=== PATIENT | female | born 1965 | race Caucasian/White ===

== ENCOUNTER 2017-05-17 12:27 | Emergency (ER) | payer MEDICAID ==
[~2017-05-17] VITALS: Ht 152.4 cm; Wt 60.0 kg
[2017-05-17] MEDS ORDERED: METHYLPREDNISOLONE SOD SUCC 125 MG/2 ML VIAL IV STA (13:01)
[2017-05-17] MEDS ORDERED: LEVOFLOXACIN 750MG PREMIX 150 ML IV ONE (13:15)
[2017-05-17] MEDS ORDERED: IPRATROPIUM/ALBUTEROL 0.5-3(2.5)MG/3ML NEB HHN ONE (13:15)
[2017-05-17 13:31] LABS: BG BASE EXCESS 0.8 mmol/L (-2.0-2.0); BG CARBOXYHEMOGLOBIN 0.4 % (0.5-1.5); BG DEOXYHEMOGLOBIN 4.8 % (0.0-5.0); BG FRACTION INSPIRED OXYGEN 21; BG HCO3 ACT 26.2 mmol/L (22.0-26.0); BG METHEMOGLOBIN 0.1 % (0.0-1.5); BG OXYGEN SATURATION 95.2 % (92.0-98.5); BG OXYHEMOGLOBIN 94.7 % (94.0-97.0); BG PCO2 44.9 mmHg (35.0-45.0); BG PH 7.384 (7.350-7.450); BG PO2 81.8 mmHg (75.0-100.0); BG SAMPLE SITE LEFT BRACHIAL; BG VENT MODE ROOM AIR
[2017-05-17 14:13] LABS: BASOPHILS % 0.7 % (0.0-2.0); EOSINOPHILS % 11.3 % (0.0-5.0); HEMATOCRIT. 39.6 % (36.0-48.0); HEMOGLOBIN. 13.4 g/dL (12.0-16.0); LYMPHOCYTES % 39.7 % (20.0-50.0); MEAN CORPUSCULAR VOLUME 86.1 fL (81.0-99.0); MEAN PLATELET VOLUME 9.2 fl (7.4-10.4); NEUTROPHILS % 41.3 % (40.0-76.0); PLATELET 303 x1000/uL (130-400); RED CELL DISTRIBUTION WIDTH 13.8 % (11.6-14.6)
[2017-05-17 14:21] LABS: PARTIAL THROMBOPLASTIN TIME 27.5 sec (24.0-34.0); PROTHROMBIN TIME 10.6 sec
[2017-05-17 14:30] LABS: CARBON DIOXIDE 29 mEq/L (21-32); CHLORIDE 105 mEq/L (98-107); CREATINE KINASE 81 IU/L (26-192); TROPONIN I < 0.02 ng/mL (0.00-0.04)
[2017-05-17 17:45] VITALS: BP 119/68
== END 2017-05-17 17:49 | disposition home or self-care (01) ==
LOC: ER 14:55
DX: J45.901 Unspecified asthma with (acute) exacerbation (principal); E78.00 Pure hypercholesterolemia, unspecified
CPT/HCPCS: 36415; 36600; 71010; 80053; 82375; 82550; 82805; 83605; 83690; 83880; 84443; 84484; 85025; 85610; 85730; 87040; 93005; 94640; 96365; 96366; 96375; 99285; J1956; J2930; Z7610; J7620

== ENCOUNTER 2017-08-13 20:48 | Emergency (ER) | payer MEDICAID ==
[~2017-08-13] VITALS: Ht 152.4 cm; Wt 59.0 kg
[2017-08-13] MEDS ORDERED: PREDNISONE 20MG TABLET PO ONE (22:00)
[2017-08-13] MEDS ORDERED: IPRATROPIUM/ALBUTEROL 0.5-3(2.5)MG/3ML NEB HHN ONE ×2 (22:00→22:30)
[2017-08-14 00:45] VITALS: BP 147/64
== END 2017-08-14 01:20 | disposition home or self-care (01) ==
LOC: ER 22:17
DX: J45.901 Unspecified asthma with (acute) exacerbation (principal)
CPT/HCPCS: 94640; 99291; J7512; Z7610; J7620

== ENCOUNTER 2017-08-26 20:34 | Emergency (ER) | payer MEDICAID ==
[~2017-08-26] VITALS: Ht 165.1 cm; Wt 59.0 kg
[2017-08-26] MEDS ORDERED: METHYLPREDNISOLONE SOD SUCC 125 MG/2 ML VIAL IV STA (22:21)
[2017-08-26] MEDS ORDERED: IPRATROPIUM BROMIDE (0.02%) 0.5MG/2.5ML NEB HHN STA (22:21)
[2017-08-26] MEDS ORDERED: ALBUTEROL (0.083%) 2.5MG/3ML NEB HHN STA (22:21)
[2017-08-26] MEDS ORDERED: MAGNESIUM 2 G PREMIX 50 ML IV ONE (22:30)
[2017-08-26] MEDS ORDERED: IPRATROPIUM/ALBUTEROL 0.5-3(2.5)MG/3ML NEB ONE (22:40)
[2017-08-26] MEDS ORDERED: ALBUTEROL (0.5%) 2.5MG/0.5ML NEB HHN ONE (22:40)
[2017-08-26 22:45] LABS: BASOPHILS % 0.7 % (0.0-2.0); EOSINOPHILS % 7.8 % (0.0-5.0); HEMATOCRIT. 40.5 % (36.0-48.0); HEMOGLOBIN. 13.6 g/dL (12.0-16.0); LYMPHOCYTES % 24.7 % (20.0-50.0); MEAN CORPUSCULAR HEMOGLOBIN 28.8 pg (28.0-32.0); MEAN CORPUSCULAR VOLUME 86.1 fL (81.0-99.0); MEAN PLATELET VOLUME 9.1 fl (7.4-10.4); MONOCYTES % 6.3 % (2.0-8.0); NEUTROPHILS % 60.5 % (40.0-76.0); PLATELET 323 x1000/uL (130-400); RED CELL DISTRIBUTION WIDTH 13.4 % (11.6-14.6)
[2017-08-26 22:55] LABS: D-DIMER 0.2 mg/L FEU (<0.50); PROTHROMBIN TIME 10.2 sec (9.4-11.6)
[2017-08-26 23:02] LABS: CARBON DIOXIDE 26 mEq/L (21-32); CHLORIDE 104 mEq/L (98-107)
[2017-08-26 23:03] LABS: TROPONIN I < 0.02 ng/mL (0.00-0.04)
[2017-08-27 01:32] VITALS: BP 135/60
== END 2017-08-27 01:46 | disposition home or self-care (01) ==
LOC: ER 21:30 → CANBEDREQ 08-27 06:39
DX: J45.901 Unspecified asthma with (acute) exacerbation (principal)
CPT/HCPCS: 36415; 71010; 80053; 83605; 83690; 83880; 84484; 85025; 85379; 85610; 87040; 87804; 93005; 93970; 94644; 96365; 96375; 99285; J2930; J3475; J7611; Z7610; J7620

== ENCOUNTER 2017-12-02 19:45 | Emergency (ER) | payer MEDICAID ==
[~2017-12-02] VITALS: Ht 152.4 cm; Wt 57.0 kg
[~2017-12-02 19:45] MED LIST: ALBU18HF2 IH; CETI-101 PO; FLUT1DIS3 IH; P50 PO
[2017-12-02 21:21] VITALS: BP 148/79
[2017-12-02] MEDS ORDERED: METHYLPREDNISOLONE SOD SUCC 125 MG/2 ML VIAL IV STA (22:00)
[2017-12-02] MEDS ORDERED: IPRATROPIUM BROMIDE (0.02%) 0.5MG/2.5ML NEB HHN STA (22:00)
[2017-12-02] MEDS ORDERED: ALBUTEROL (0.083%) 2.5MG/3ML NEB HHN STA (22:00)
[2017-12-03] MEDS ORDERED: ALBUTEROL (0.5%) 2.5MG/0.5ML NEB HHN ONE
[2017-12-03] MEDS ORDERED: ALBUTEROL (0.083%) 2.5MG/3ML NEB HHN ONE (00:15)
[2017-12-03] MEDS ORDERED: ALBUTEROL (0.083%) 2.5MG/3ML NEB ONE (00:23)
== END 2017-12-03 02:17 | disposition left against medical advice (07) ==
LOC: ER 21:41
DX: J45.901 Unspecified asthma with (acute) exacerbation (principal); J06.9 Acute upper respiratory infection, unspecified
CPT/HCPCS: 71045; 87804; 94640; 96374; 99285; J2930; J7611; Z7610

== ENCOUNTER 2018-10-21 15:08 | Inpatient (IN) | payer MEDICAID ==
[~2018-10-21] VITALS: Ht 157.5 cm; Wt 59.9 kg
[2018-10-21] MEDS ORDERED: ALBUTEROL (0.083%) 2.5MG/3ML NEB INH ONE (15:15)
[2018-10-21] MEDS ORDERED: IPRATROPIUM BROMIDE (0.02%) 0.5MG/2.5ML NEB HHN ONE (15:15)
[2018-10-21 16:16] LABS: BASOPHILS % 0.3 % (0.0-2.0); EOSINOPHILS % 0.5 % (0.0-5.0); HEMATOCRIT. 36.9 % (36.0-48.0); HEMOGLOBIN. 12.1 g/dL (12.0-16.0); MEAN CORPUSCULAR HEMOGLOBIN 27.6 pg (28.0-32.0); MEAN CORPUSCULAR VOLUME 84.2 fL (81.0-99.0); MEAN PLATELET VOLUME 8.9 fl (7.4-10.4); MONOCYTES % 8.9 % (2.0-8.0); NEUTROPHILS % 75.3 % (40.0-76.0); PLATELET 289 x1000/uL (130-400); RED BLOOD CELL COUNT 4.38 mill/uL (4.2-5.4); RED CELL DISTRIBUTION WIDTH 14.1 % (11.6-14.6)
[2018-10-21 16:22] LABS: CHLORIDE 101 mEq/L (98-107)
[2018-10-21 16:23] LABS: INR 1.1; PROTHROMBIN TIME 10.7 sec (9.1-11.1)
[2018-10-21] MEDS ORDERED: METHYLPREDNISOLONE SOD SUCC 125 MG/2 ML VIAL IV ONE (17:00)
[2018-10-21] MEDS ORDERED: SODIUM CHLORIDE 0.9% 1000ML BAG (SEPSIS BOLUS) IV ONE (17:00)
[2018-10-21] MEDS ORDERED: LEVOFLOXACIN 500MG PREMIX 100 ML IV ONE (17:00)
[2018-10-21 17:36] LABS: CLARITY URINE CLEAR (CLEAR); COLOR URINE YELLOW (YELLOW); KETONES URINE NEGATIVE (NEGATIVE); LEUKOCYTE ESTERASE URINE NEGATIVE (NEGATIVE); NITRITE URINE NEGATIVE (NEGATIVE); OCCULT BLOOD URINE NEGATIVE (NEGATIVE); PH URINE 5.5 (4.5-8.0); PROTEIN URINE NEGATIVE (NEGATIVE); SPECIFIC GRAVITY URINE 1.013 (1.005-1.030); UROBILINOGEN URINE 0.2 E.U./dL (0.2-1.0)
[2018-10-21 18:02] LABS: BG BASE EXCESS 1.7 mmol/L (-2.0-2.0); BG DEOXYHEMOGLOBIN 4.2 % (0.0-5.0); BG FRACTION INSPIRED OXYGEN 30; BG METHEMOGLOBIN 0.3 % (0.0-1.5); BG OXYGEN SATURATION 95.7 % (92.0-98.5); BG OXYHEMOGLOBIN 94.5 % (94.0-97.0); BG PCO2 39.8 mmHg (35.0-45.0); BG PH 7.433 (7.350-7.450); BG SAMPLE SITE RIGHT RADIAL; BG TOTAL HEMOGLOBIN 11.4 g/dL (12.0-18.0); BG VENT MODE NASAL CANNULA
[2018-10-21] MEDS ORDERED: ALBUTEROL (0.083%) 2.5MG/3ML NEB HHN ONE (18:30)
[2018-10-21] MEDS ORDERED: ALBUTEROL (0.083%) 2.5MG/3ML NEB HHN NR (19:00)
[2018-10-21] MEDS ORDERED: DOCUSATE SODIUM 100MG CAPSULE PO PRN (19:15)
[2018-10-21] MEDS ORDERED: NA PHOS,M-B/NA PHOS,DI-BA ENEMA 118ML PR PRN (19:15)
[2018-10-21] MEDS ORDERED: CLONIDINE 0.1MG TABLET PO PRN (19:15)
[2018-10-21] MEDS ORDERED: LORAZEPAM 2MG/ML CPJ IV PRN (19:15)
[2018-10-21] MEDS ORDERED: ONDANSETRON HCL 4MG/2ML INJ IV PRN (19:15)
[2018-10-21] MEDS ORDERED: MAGNESIUM/ALUMINUM HYDROXIDE/SIMETHICONE 30ML UDC PO PRN (19:15)
[2018-10-21] MEDS ORDERED: DIPHENHYDRAMINE 50MG/ML VIAL IV PRN (19:15)
[2018-10-21 23:04] LABS: CHLORIDE 105 mEq/L (98-107)
[2018-10-22] VITALS (7 sets, daily range): BP systolic 102–127; BP diastolic 62–76
[2018-10-22] MEDS ORDERED: MORPHINE SULFATE 10 MG/ML CPJ IV PRN (02:01)
[2018-10-22] MEDS: METHYLPREDNISOLONE SOD SUCC 125 MG/2 ML VIAL IV SCH ×4 (05:54→23:36)
[2018-10-22 07:19] LABS: HEMATOCRIT. 33.8 % (36.0-48.0); MEAN CORPUSCULAR HEMOGLOBIN 27.7 pg (28.0-32.0); MEAN CORPUSCULAR VOLUME 84.9 fL (81.0-99.0); MEAN PLATELET VOLUME 9.6 fl (7.4-10.4); PLATELET 283 x1000/uL (130-400); RED BLOOD CELL COUNT 3.98 mill/uL (4.2-5.4)
[2018-10-22 07:41] LABS: CHLORIDE 106 mEq/L (98-107)
[2018-10-22 07:53] LABS: LDL CHOLESTEROL 109 mg/dL (5-100)
[2018-10-22 07:55] LABS: HDL CHOLESTEROL 50 mg/dL (40-59); T4 FREE 1.41 ng/dL (0.76-1.46)
[2018-10-22] MEDS: ENOXAPARIN 40MG/0.4ML SYR SUBCUT SCH (09:00)
[2018-10-22] MEDS: IPRATROPIUM/ALBUTEROL 0.5-3(2.5)MG/3ML NEB INH PRN ×3 (09:11→16:19)
[2018-10-22 13:06] LABS: PLATELET ESTIMATE NORMAL
[2018-10-22] MEDS: ACETAMINOPHEN 325MG TABLET PO PRN (14:28)
[2018-10-22] MEDS: ASPIRIN 81MG EC TABLET PO SCH (14:35)
[2018-10-22] MEDS: GUAIFENESIN 200MG/10ML SUGAR FREE UDC PO PRN ×2 (14:44→23:37)
[2018-10-22] MEDS ORDERED: LEVOFLOXACIN 500MG PREMIX 100 ML IV SCH (17:00)
[2018-10-23] VITALS: BP 129/78
[2018-10-23] MEDS: IPRATROPIUM/ALBUTEROL 0.5-3(2.5)MG/3ML NEB INH PRN ×2 (00:05→07:57)
[2018-10-23] MEDS: HYDROCODONE/ACETAMINOPHEN 5/325MG TABLET PO PRN (02:24)
[2018-10-23 04:00] VITALS: BP 128/77
[2018-10-23] MEDS: METHYLPREDNISOLONE SOD SUCC 125 MG/2 ML VIAL IV SCH (05:29)
[2018-10-23 06:47] LABS: HEMATOCRIT. 33.3 % (36.0-48.0); MEAN CORPUSCULAR HEMOGLOBIN 27.9 pg (28.0-32.0); MEAN CORPUSCULAR VOLUME 84.8 fL (81.0-99.0); MEAN PLATELET VOLUME 9.3 fl (7.4-10.4); PLATELET 258 x1000/uL (130-400); RED BLOOD CELL COUNT 3.93 mill/uL (4.2-5.4)
[2018-10-23 08:00] VITALS: BP 136/74
[2018-10-23 08:13] LABS: CHLORIDE 103 mEq/L (98-107)
[2018-10-23] MEDS: ASPIRIN 81MG EC TABLET PO SCH (08:41)
[2018-10-23] MEDS: ACETAMINOPHEN 325MG TABLET PO PRN ×2 (08:41→16:44)
[2018-10-23] MEDS: ENOXAPARIN 40MG/0.4ML SYR SUBCUT SCH (08:41)
[2018-10-23] MEDS ORDERED: DEXTROSE 50% WATER 50ML SYRINGE IV PRN (10:00)
[2018-10-23] MEDS ORDERED: AZITHROMYCIN 500 MG TABLET PO NR (10:00)
[2018-10-23] MEDS: METHYLPREDNISOLONE SOD SUCC 40 MG/ML VIAL IV SCH ×2 (10:38→18:25)
[2018-10-23] MEDS: LORATADINE 10MG TABLET PO SCH (10:38)
[2018-10-23 10:51] LABS: PLATELET ESTIMATE NORMAL
[2018-10-23] MEDS: IPRATROPIUM/ALBUTEROL 0.5-3(2.5)MG/3ML NEB HHN SCH ×3 (11:32→21:05)
[2018-10-23 12:00] VITALS: BP 121/69
[2018-10-23] MEDS: LEVOFLOXACIN 500MG PREMIX 100 ML IV SCH (13:25)
[2018-10-23] MEDS: BLOOD SUGAR DIAGNOSTIC STRIP TEST SCH ×3 (13:33→20:57)
[2018-10-23] MEDS ORDERED: LEVOFLOXACIN 500MG PREMIX 100 ML IV SCH ×2 (14:00)
[2018-10-23 16:00] VITALS: BP 127/71
[2018-10-23] MEDS: GUAIFENESIN 200MG/10ML SUGAR FREE UDC PO PRN (16:43)
[2018-10-23] MEDS: MONTELUKAST SODIUM 10MG TABLET PO SCH (16:44)
[2018-10-23] MEDS: INSULIN LISPRO 100 UNITS/ML SUBCUT SCH ×2 (18:26→20:56)
[2018-10-23 20:00] VITALS: BP 132/72
[2018-10-23] MEDS: GUAIFENESIN 600MG ER TABLET PO SCH (20:56)
[2018-10-23] MEDS: FAMOTIDINE 20MG/2ML VIAL IV SCH (20:56)
[2018-10-24] VITALS: BP 144/81
[2018-10-24] MEDS: IPRATROPIUM/ALBUTEROL 0.5-3(2.5)MG/3ML NEB HHN SCH ×6 (00:29→21:34)
[2018-10-24] MEDS: METHYLPREDNISOLONE SOD SUCC 40 MG/ML VIAL IV SCH ×2 (01:11→09:28)
[2018-10-24] MEDS: HYDROCODONE/ACETAMINOPHEN 5/325MG TABLET PO PRN ×2 (01:11→09:28)
[2018-10-24 04:00] VITALS: BP 135/74
[2018-10-24] MEDS: BLOOD SUGAR DIAGNOSTIC STRIP TEST SCH ×4 (05:38→21:57)
[2018-10-24] MEDS: INSULIN LISPRO 100 UNITS/ML SUBCUT SCH ×4 (05:46→21:56)
[2018-10-24 06:21] LABS: HEMATOCRIT. 33.7 % (36.0-48.0); MEAN CORPUSCULAR HEMOGLOBIN 27.7 pg (28.0-32.0); MEAN CORPUSCULAR VOLUME 84.8 fL (81.0-99.0); PLATELET 217 x1000/uL (130-400); RED BLOOD CELL COUNT 3.97 mill/uL (4.2-5.4)
[2018-10-24 06:35] LABS: CHLORIDE 96 mEq/L (98-107)
[2018-10-24 08:00] VITALS: BP 159/83
[2018-10-24] MEDS: LORATADINE 10MG TABLET PO SCH (09:27)
[2018-10-24] MEDS: GUAIFENESIN 600MG ER TABLET PO SCH ×2 (09:27→21:56)
[2018-10-24] MEDS: AZITHROMYCIN 250 MG TABLET PO SCH (09:27)
[2018-10-24] MEDS: ACETAMINOPHEN 325MG TABLET PO PRN ×2 (09:27→23:39)
[2018-10-24] MEDS: FAMOTIDINE 20MG/2ML VIAL IV SCH ×2 (09:28→21:57)
[2018-10-24] MEDS: ASPIRIN 81MG EC TABLET PO SCH (09:28)
[2018-10-24] MEDS: ENOXAPARIN 40MG/0.4ML SYR SUBCUT SCH (09:29)
[2018-10-24 12:00] VITALS: BP 130/72
[2018-10-24] MEDS: LEVOFLOXACIN 500MG PREMIX 100 ML IV SCH (13:28)
[2018-10-24 14:07] LABS: PLATELET ESTIMATE NORMAL
[2018-10-24 16:00] VITALS: BP 118/63
[2018-10-24] MEDS ORDERED: AMIKACIN SULFATE 450 MG in SODIUM CHLORIDE 0.9% 100 ML IV NR (16:00)
[2018-10-24] MEDS: MONTELUKAST SODIUM 10MG TABLET PO SCH (16:50)
[2018-10-24] MEDS: PREDNISONE 20MG TABLET PO SCH (16:50)
[2018-10-24 20:00] VITALS: BP 122/64
[2018-10-25] VITALS: BP 143/75
[2018-10-25] MEDS: IPRATROPIUM/ALBUTEROL 0.5-3(2.5)MG/3ML NEB HHN SCH ×5 (01:21→16:00)
[2018-10-25 04:00] VITALS: BP 132/84
[2018-10-25] MEDS: BLOOD SUGAR DIAGNOSTIC STRIP TEST SCH ×3 (06:50→17:00)
[2018-10-25 07:52] LABS: HEMATOCRIT. 38.5 % (36.0-48.0); HEMOGLOBIN. 12.8 g/dL (12.0-16.0); MEAN CORPUSCULAR HEMOGLOBIN 28.1 pg (28.0-32.0); MEAN CORPUSCULAR VOLUME 84.7 fL (81.0-99.0); MEAN PLATELET VOLUME 8.9 fl (7.4-10.4); PLATELET 213 x1000/uL (130-400); RED BLOOD CELL COUNT 4.54 mill/uL (4.2-5.4); RED CELL DISTRIBUTION WIDTH 13.6 % (11.6-14.6)
[2018-10-25 08:00] VITALS: BP 138/76
[2018-10-25] MEDS: INSULIN LISPRO 100 UNITS/ML SUBCUT SCH ×3 (08:10→17:13)
[2018-10-25] MEDS: PREDNISONE 20MG TABLET PO SCH ×2 (09:03→17:00)
[2018-10-25] MEDS: FAMOTIDINE 20MG/2ML VIAL IV SCH (09:03)
[2018-10-25] MEDS: GUAIFENESIN 600MG ER TABLET PO SCH (09:04)
[2018-10-25] MEDS: LORATADINE 10MG TABLET PO SCH (09:04)
[2018-10-25] MEDS: AZITHROMYCIN 250 MG TABLET PO SCH (09:04)
[2018-10-25] MEDS: ASPIRIN 81MG EC TABLET PO SCH (09:04)
[2018-10-25] MEDS: ENOXAPARIN 40MG/0.4ML SYR SUBCUT SCH (09:05)
[2018-10-25 09:57] LABS: CHLORIDE 94 mEq/L (98-107)
[2018-10-25] MEDS ORDERED: AMIKACIN SULFATE 400 MG in SODIUM CHLORIDE 0.9% 100 ML IV SCH ×2 (10:00→16:00)
[2018-10-25] MEDS: HYDROCODONE/ACETAMINOPHEN 5/325MG TABLET PO PRN (11:27)
[2018-10-25 16:00] VITALS: BP 95/56
[2018-10-25 16:12] LABS: PLATELET ESTIMATE NORMAL
[2018-10-25] MEDS: MONTELUKAST SODIUM 10MG TABLET PO SCH (17:00)
[2018-10-25 19:49] VITALS: BP 127/76
[2018-10-25 20:00] VITALS: BP 127/76
== END 2018-10-25 20:32 | disposition home or self-care (01) | DRG 720 ==
LOC: ER 15:23 → EDBEDREQTM 17:02 → EDBEDREQ 23:32 → EDBEDREQSVC 23:32 → 7WST 23:32 → EDBEDREQTM 23:32 → ENRESERV 10-22 00:51
PROVIDERS: ADMIT Internal Medicine; ATTEND Internal Medicine
DX: A41.50 Gram-negative sepsis, unspecified (principal); J96.00 Acute respiratory failure, unspecified whether with hypoxia or hypercapnia; E11.65 Type 2 diabetes mellitus with hyperglycemia; J45.901 Unspecified asthma with (acute) exacerbation; K21.9 Gastro-esophageal reflux disease without esophagitis; N39.0 Urinary tract infection, site not specified; B96.20 Unspecified Escherichia coli [E. coli] as the cause of diseases classified elsewhere; T38.0X5A Adverse effect of glucocorticoids and synthetic analogues, initial encounter; E86.0 Dehydration; J20.9 Acute bronchitis, unspecified; E78.5 Hyperlipidemia, unspecified; Z82.49 Family history of ischemic heart disease and other diseases of the circulatory system; Z83.3 Family history of diabetes mellitus; Y92.89 Other specified places as the place of occurrence of the external cause
CPT/HCPCS: 36415; 36600; 71045; 80048; 80061; 82375; 82805; 82962; 83605; 84145; 84439; 84443; 84484; 87077; 87186; 87804; 93005; 94640; 94644; 96365; 96375; 99285; C1893; J0278; J1650; J1815; J1956; J2920; J2930; J3490; J7050; J7512; J7611; J7620

== ENCOUNTER 2018-10-26 15:06 | Inpatient (IN) | payer MEDICAID ==
[~2018-10-26] VITALS: Ht 152.4 cm; Wt 60.3 kg
[2018-10-26] MEDS ORDERED: SODIUM CHLORIDE 0.9% 1,000 ML IV ONE (15:55)
[2018-10-26] MEDS ORDERED: IPRATROPIUM BROMIDE (0.02%) 0.5MG/2.5ML NEB HHN STA (15:55)
[2018-10-26] MEDS ORDERED: METHYLPREDNISOLONE SOD SUCC 125 MG/2 ML VIAL IV STA (15:55)
[2018-10-26] MEDS ORDERED: MAGNESIUM 2 G PREMIX 50 ML IV ONE (16:00)
[2018-10-26] MEDS: ALBUTEROL (0.083%) 2.5MG/3ML NEB HHN SCH (16:35)
[2018-10-26 16:50] LABS: CHLORIDE 89 mEq/L (98-107)
[2018-10-26] MEDS ORDERED: POTASSIUM CHLORIDE 20MEQ TABLET SR PO ONE (17:45)
[2018-10-26 17:58] LABS: MEAN CORPUSCULAR VOLUME 84.4 fL (81.0-99.0); RED BLOOD CELL COUNT 5.49 mill/uL (4.2-5.4)
[2018-10-26 18:02] LABS: MEAN CORPUSCULAR HEMOGLOBIN 27.7 pg (28.0-32.0); MEAN PLATELET VOLUME 8.7 fl (7.4-10.4); RED CELL DISTRIBUTION WIDTH 13.8 % (11.6-14.6)
[2018-10-26 18:04] LABS: PLATELET 48 x1000/uL (130-400)
[2018-10-26 18:05] LABS: HEMOGLOBIN. 15.2 g/dL (12.0-16.0)
[2018-10-26 18:06] LABS: HEMATOCRIT. 46.3 % (36.0-48.0)
[2018-10-26] MEDS ORDERED: ALBUTEROL (0.083%) 2.5MG/3ML NEB HHN STA (18:14)
[2018-10-26] MEDS ORDERED: VANCOMYCIN 1 G PREMIX 200 ML IV ONE (18:15)
[2018-10-26] MEDS ORDERED: PIPERACILLIN/TAZ 3.375G PREMIX 50 ML IV ONE (18:15)
[2018-10-26] MEDS ORDERED: SODIUM CHLORIDE 0.9% 1000ML BAG (SEPSIS BOLUS) IV ONE (18:15)
[2018-10-26] MEDS ORDERED: MAGNESIUM/ALUMINUM HYDROXIDE/SIMETHICONE 30ML UDC PO PRN (20:30)
[2018-10-26] MEDS ORDERED: DIPHENHYDRAMINE 50MG/ML VIAL IV PRN (20:30)
[2018-10-26] MEDS ORDERED: CLONIDINE 0.1MG TABLET PO PRN (20:30)
[2018-10-26] MEDS ORDERED: PIPERACILLIN/TAZ 3.375G PREMIX 50 ML IV SCH (20:30)
[2018-10-26] MEDS ORDERED: ENOXAPARIN 40MG/0.4ML SYR SUBCUT SCH (20:30)
[2018-10-26] MEDS ORDERED: HYDROMORPHONE HCL/PF 2MG/ML CPJ IV PRN (20:30)
[2018-10-26] MEDS ORDERED: HYDROCODONE/ACETAMINOPHEN 5/325MG TABLET PO PRN (20:30)
[2018-10-26] MEDS ORDERED: DOCUSATE SODIUM 100MG CAPSULE PO PRN (20:30)
[2018-10-26] MEDS ORDERED: ACETAMINOPHEN 325MG TABLET PO PRN (20:30)
[2018-10-26] MEDS ORDERED: ONDANSETRON HCL 4MG/2ML INJ IV PRN (20:30)
[2018-10-26] MEDS ORDERED: NA PHOS,M-B/NA PHOS,DI-BA ENEMA 118ML PR PRN (21:00)
[2018-10-26 21:13] VITALS: BP 111/70
[2018-10-26 21:59] LABS: NUCLEATED RED BLOOD CELLS 1 /100 WBC
[2018-10-26 22:00] VITALS: BP 111/70
[2018-10-26 22:04] LABS: PLATELET ESTIMATE MARKEDLY DECREASED
[2018-10-26] MEDS: IPRATROPIUM/ALBUTEROL 0.5-3(2.5)MG/3ML NEB INH PRN (22:35)
[2018-10-26] MEDS: METHYLPREDNISOLONE SOD SUCC 125 MG/2 ML VIAL IV SCH (23:53)
[2018-10-27] VITALS (8 sets, daily range): BP systolic 112–129; BP diastolic 65–84
[2018-10-27 00:24] LABS: INR 1.1; PROTHROMBIN TIME 10.8 sec (9.1-11.1)
[2018-10-27] MEDS: IPRATROPIUM/ALBUTEROL 0.5-3(2.5)MG/3ML NEB INH PRN ×6 (00:46→21:00)
[2018-10-27] MEDS: PIPERACILLIN/TAZ 3.375G PREMIX 50 ML IV SCH ×3 (04:08→22:12)
[2018-10-27] MEDS: METHYLPREDNISOLONE SOD SUCC 125 MG/2 ML VIAL IV SCH ×4 (05:52→23:11)
[2018-10-27] MEDS: VANCOMYCIN 750 MG PREMIX 150 ML IV SCH ×2 (05:52→18:58)
[2018-10-27 07:17] LABS: HEMATOCRIT. 40.1 % (36.0-48.0); HEMOGLOBIN. 13.3 g/dL (12.0-16.0); MEAN CORPUSCULAR HEMOGLOBIN 28.2 pg (28.0-32.0); MEAN CORPUSCULAR VOLUME 85.3 fL (81.0-99.0); MEAN PLATELET VOLUME 8.8 fl (7.4-10.4); RED CELL DISTRIBUTION WIDTH 14.1 % (11.6-14.6)
[2018-10-27 07:37] LABS: CHLORIDE 96 mEq/L (98-107)
[2018-10-27 07:50] LABS: LDL CHOLESTEROL 95 mg/dL (5-100)
[2018-10-27 07:51] LABS: HDL CHOLESTEROL 16 mg/dL (40-59)
[2018-10-27] MEDS: ASPIRIN 81MG EC TABLET PO SCH (10:00)
[2018-10-27 11:20] LABS: ATYPICAL LYMPHOCYTES 0
[2018-10-27 21:35] LABS: HEMATOCRIT. 39.3 % (36.0-48.0); HEMOGLOBIN. 12.7 g/dL (12.0-16.0); MEAN CORPUSCULAR HEMOGLOBIN 27.3 pg (28.0-32.0); MEAN CORPUSCULAR VOLUME 84.4 fL (81.0-99.0); RED BLOOD CELL COUNT 4.66 mill/uL (4.2-5.4); RED CELL DISTRIBUTION WIDTH 13.9 % (11.6-14.6)
[2018-10-27 21:44] LABS: PLATELET 24 x1000/uL (130-400)
[2018-10-27 23:00] LABS: ATYPICAL LYMPHOCYTES 6; PLATELET ESTIMATE DECREASED
[2018-10-28] VITALS (11 sets, daily range): BP systolic 115–161; BP diastolic 72–95
[2018-10-28] MEDS: IPRATROPIUM/ALBUTEROL 0.5-3(2.5)MG/3ML NEB INH PRN ×4 (00:53→20:51)
[2018-10-28] MEDS: VANCOMYCIN 750 MG PREMIX 150 ML IV SCH (04:55)
[2018-10-28] MEDS: PIPERACILLIN/TAZ 3.375G PREMIX 50 ML IV SCH ×3 (04:55→20:58)
[2018-10-28] MEDS: METHYLPREDNISOLONE SOD SUCC 125 MG/2 ML VIAL IV SCH ×2 (04:58→11:55)
[2018-10-28 05:59] LABS: CHLORIDE 95 mEq/L (98-107)
[2018-10-28 06:21] LABS: CREATINE KINASE 29 IU/L (26-192)
[2018-10-28 06:23] LABS: HEPATITIS B SURFACE ANTIGEN NEGATIVE
[2018-10-28 06:26] LABS: CREATINE KINASE MB FRACTION < 1.0 ng/mL (0.5-3.6)
[2018-10-28 06:51] LABS: HEPATITIS A AB IGM NEGATIVE (NEGATIVE)
[2018-10-28 07:07] LABS: BASOPHILS % 0.5 % (0.0-2.0); EOSINOPHILS % 0.1 % (0.0-5.0); HEMATOCRIT. 41.4 % (36.0-48.0); HEMOGLOBIN. 13.4 g/dL (12.0-16.0); MEAN CORPUSCULAR HEMOGLOBIN 27.5 pg (28.0-32.0); MEAN CORPUSCULAR VOLUME 84.8 fL (81.0-99.0); MEAN PLATELET VOLUME 8.7 fl (7.4-10.4); MONOCYTES % 8.7 % (2.0-8.0); NEUTROPHILS % 72.7 % (40.0-76.0); RED BLOOD CELL COUNT 4.88 mill/uL (4.2-5.4); RED CELL DISTRIBUTION WIDTH 13.9 % (11.6-14.6)
[2018-10-28] MEDS: ASPIRIN 81MG EC TABLET PO SCH (08:07)
[2018-10-28 10:24] LABS: PLATELET 25 x1000/uL (130-400); PLATELET ESTIMATE MARKEDLY DECREASED
[2018-10-28 12:39] LABS: PLATELET ESTIMATE MARKEDLY DECREASED
[2018-10-28 12:40] LABS: PLATELET 35 x1000/uL (130-400)
[2018-10-28] MEDS ORDERED: METHYLPREDNISOLONE SOD SUCC 40 MG/ML VIAL IV SCH (14:00)
[2018-10-28 14:20] LABS: BG BASE EXCESS 6.1 mmol/L (-2.0-2.0); BG CARBOXYHEMOGLOBIN 1.5 % (0.5-1.5); BG DEOXYHEMOGLOBIN 5.3 % (0.0-5.0); BG FRACTION INSPIRED OXYGEN 24; BG METHEMOGLOBIN 0.3 % (0.0-1.5); BG OXYGEN SATURATION 94.6 % (92.0-98.5); BG OXYHEMOGLOBIN 92.9 % (94.0-97.0); BG PCO2 57.9 mmHg (35.0-45.0); BG PH 7.374 (7.350-7.450); BG SAMPLE SITE RIGHT RADIAL; BG TOTAL HEMOGLOBIN 13.7 g/dL (12.0-18.0); BG VENT MODE NASAL CANNULA
[2018-10-28] MEDS: VANCOMYCIN 1 G PREMIX 200 ML IV SCH ×2 (14:51→20:55)
[2018-10-28] MEDS: AZITHROMYCIN 500 MG in DEXT 5% WATER 250 ML IV SCH (15:42)
[2018-10-28 17:29] LABS: *AMPHETAMINES SCREEN URINE NEGATIVE (NEGATIVE)
[2018-10-28 17:30] LABS: *BARBITURATES SCREEN URINE NEGATIVE (NEGATIVE); *BENZODIAZEPINES SCREEN URINE NEGATIVE (NEGATIVE); *COCAINE SCREEN URINE NEGATIVE (NEGATIVE); METHADONE URINE SCREEN NEGATIVE (NEGATIVE); OPIATES URINE SCREEN PRESUMTIVE POSITIVE (NEGATIVE)
[2018-10-28 17:31] LABS: CANNABINOID URINE SCREEN NEGATIVE (NEGATIVE); PHENCYCLIDINE URINE SCREEN NEGATIVE (NEGATIVE)
[2018-10-28] MEDS: METHYLPREDNISOLONE SOD SUCC 40 MG/ML VIAL IV SCH (19:53)
[2018-10-28] MEDS ORDERED: DEXTROSE 50% WATER 50ML SYRINGE IV PRN ×2 (21:30)
[2018-10-28] MEDS: BLOOD SUGAR DIAGNOSTIC STRIP TEST SCH (22:05)
[2018-10-28] MEDS: INSULIN LISPRO 100 UNITS/ML SUBCUT SCH (22:10)
[2018-10-29] VITALS (10 sets, daily range): BP systolic 120–183; BP diastolic 71–99
[2018-10-29] MEDS: METHYLPREDNISOLONE SOD SUCC 40 MG/ML VIAL IV SCH ×2 (04:00→12:04)
[2018-10-29] MEDS: VANCOMYCIN 1 G PREMIX 200 ML IV SCH ×2 (05:34→13:51)
[2018-10-29] MEDS: PIPERACILLIN/TAZ 3.375G PREMIX 50 ML IV SCH ×2 (05:34→13:50)
[2018-10-29 06:56] LABS: HEMATOCRIT. 39.9 % (36.0-48.0); HEMOGLOBIN. 12.9 g/dL (12.0-16.0); MEAN CORPUSCULAR HEMOGLOBIN 27.7 pg (28.0-32.0); MEAN CORPUSCULAR VOLUME 85.5 fL (81.0-99.0); MEAN PLATELET VOLUME 9.9 fl (7.4-10.4); PLATELET 53 x1000/uL (130-400); RED BLOOD CELL COUNT 4.67 mill/uL (4.2-5.4); RED CELL DISTRIBUTION WIDTH 14.3 % (11.6-14.6)
[2018-10-29 07:11] LABS: CHLORIDE 91 mEq/L (98-107)
[2018-10-29] MEDS ORDERED: BLOOD SUGAR DIAGNOSTIC STRIP TEST SCH (07:30)
[2018-10-29] MEDS: BLOOD SUGAR DIAGNOSTIC STRIP TEST SCH ×2 (07:48→12:04)
[2018-10-29] MEDS ORDERED: INSULIN LISPRO 100 UNITS/ML SUBCUT SCH (08:00)
[2018-10-29] MEDS: INSULIN LISPRO 100 UNITS/ML SUBCUT SCH ×2 (08:06→12:21)
[2018-10-29] MEDS: ASPIRIN 81MG EC TABLET PO SCH (08:58)
[2018-10-29 12:20] LABS: PLATELET ESTIMATE DECREASED
[2018-10-29] MEDS ORDERED: LEVO500T2 MT (12:32)
[2018-10-29 12:38] LABS: CHLORIDE 89 mEq/L (98-107)
[2018-10-29 12:43] LABS: VANCOMYCIN TROUGH 13.7 ug/mL (5.0-10.0)
[2018-10-29] MEDS: AZITHROMYCIN 500 MG in DEXT 5% WATER 250 ML IV SCH (16:10)
[2018-10-29] MEDS: IPRATROPIUM/ALBUTEROL 0.5-3(2.5)MG/3ML NEB INH PRN (16:16)
[2018-10-30 13:06] LABS: ANA IFA Negative (.)
== END 2018-10-29 17:45 | disposition home or self-care (01) | DRG 141 ==
LOC: ER 15:06 → 5EST 18:16 → EDBEDREQ 18:18 → EDBEDREQTM 18:18 → EDBEDREQSVC 18:18 → ENRESERV 19:44
PROVIDERS: ADMIT Internal Medicine; ATTEND Internal Medicine
PROC: 5A09357 Assistance with Respiratory Ventilation, Less than 24 Consecutive Hours, Continuous Positive Airway Pressure (ICD-10-PCS; principal; 2018-10-26)
PROC: 5A09357 Assistance with Respiratory Ventilation, Less than 24 Consecutive Hours, Continuous Positive Airway Pressure (ICD-10-PCS; 2018-10-29)
DX: J45.41 Moderate persistent asthma with (acute) exacerbation (principal); J96.00 Acute respiratory failure, unspecified whether with hypoxia or hypercapnia; J18.9 Pneumonia, unspecified organism; D69.6 Thrombocytopenia, unspecified; E46 Unspecified protein-calorie malnutrition; E11.65 Type 2 diabetes mellitus with hyperglycemia; R07.89 Other chest pain; J20.9 Acute bronchitis, unspecified; T38.0X5A Adverse effect of glucocorticoids and synthetic analogues, initial encounter; B17.9 Acute viral hepatitis, unspecified; E87.6 Hypokalemia; R00.0 Tachycardia, unspecified; I10 Essential (primary) hypertension; B34.9 Viral infection, unspecified; Z91.14 Patient's other noncompliance with medication regimen; Z68.26 Body mass index [BMI] 26.0-26.9, adult; Y92.89 Other specified places as the place of occurrence of the external cause
CPT/HCPCS: 36415; 36600; 71045; 80048; 80061; 80202; 80305; 82375; 82550; 82553; 82805; 82962; 83605; 83735; 83880; 84443; 84484; 85007; 85027; 85379; 86256; 86705; 86709; 86803; 87106; 87340; 93005; 93306; 93970; 94640; 94644; 94660; 96365; 96367; 96375; 99291; J0456; J1170; J1815; J2543; J2920; J2930; J3370; J3475; J7030; J7040; J7060; J7611; J7620

== ENCOUNTER 2023-12-17 16:57 | Emergency (ER) | payer MEDICAID ==
[~2023-12-17] VITALS: Ht 162.6 cm; Wt 61.0 kg
[~2023-12-17 16:57] MED LIST changes: -CETI-101 PO; +CETI-89 PO; +LEVO500T2 MT
[2023-12-17 17:08] VITALS: O2SAT 100
[2023-12-17 17:59] LABS: BASOPHILS % 0.6 % (0.0-2.0); EOSINOPHILS % 2.1 % (0.0-5.0); HEMATOCRIT. 39.4 % (36.0-48.0); HEMOGLOBIN. 12.5 g/dL (12.0-16.0); LYMPHOCYTES % 25.7 % (20.0-50.0); MEAN CORPUSCULAR HEMOGLOBIN 26.7 pg (28.0-32.0); MEAN CORPUSCULAR HGB CONC 31.8 g/dL (31.0-37.0); MEAN PLATELET VOLUME 8.7 fl (7.4-10.4); MONOCYTES % 8.4 % (2.0-8.0); NEUTROPHILS % 63.2 % (40.0-76.0); PLATELET 402 x1000/uL (130-400); RED BLOOD CELL COUNT 4.69 mill/uL (4.2-5.4); RED CELL DISTRIBUTION WIDTH 14.9 % (11.6-14.6); WHITE BLOOD COUNT 13.5 x1000/uL (4.5-11.0)
[2023-12-17 18:07] LABS: CLARITY URINE CLEAR (CLEAR); COLOR URINE YELLOW (YELLOW); GLUCOSE URINE NEGATIVE (NEGATIVE); KETONES URINE NEGATIVE (NEGATIVE); LEUKOCYTE ESTERASE URINE NEGATIVE (NEGATIVE); NITRITE URINE NEGATIVE (NEGATIVE); OCCULT BLOOD URINE NEGATIVE (NEGATIVE); PH URINE 5.5 (4.5-8.0); PROTEIN URINE NEGATIVE (NEGATIVE); SPECIFIC GRAVITY URINE 1.006 (1.005-1.030); UROBILINOGEN URINE 0.2 E.U./dL (0.2-1.0)
[2023-12-17 18:12] LABS: ALANINE AMINOTRANSFERASE 38 IU/L (10-49); ASPARTATE AMINOTRANSFERASE 32 IU/L (<34); BILIRUBIN TOTAL 0.3 mg/dL (0.1-1.0); CALCIUM 10.2 mg/dL (8.7-10.4); CARBON DIOXIDE 28 mEq/L (21-32); CHLORIDE 104 mEq/L (98-107); CREATININE 0.7 mg/dL (0.6-1.0); GLUCOSE 117 mg/dL (70-105); POTASSIUM 4.3 mEq/L (3.5-5.1); PROTEIN TOTAL 8.2 g/dL (6.0-8.3); SODIUM 136 mEq/L (136-145); UREA NITROGEN BLOOD 11 mg/dL (9-23)
[2023-12-17 18:20] LABS: TROPONIN I HIGH SENSITIVITY < 4 ng/L (3.0-34)
[2023-12-17 18:21] LABS: HCG SCREEN INDETERMINATE
[2023-12-17] MEDS: ACETAMINOPHEN 325MG TABLET PO ONE (19:20)
[2023-12-17] MEDS: IOHEXOL-350 100 ML BOTTLE ONE (23:19)
[2023-12-17] MEDS ORDERED: SENN-215 MT (23:40)
[2023-12-17] MEDS ORDERED: IBUPROFEN 400MG TABLET PO ONE (23:45)
[2023-12-17 23:51] VITALS: BP 160/92; PULSE 98; RESP 20; TEMP 98.2
== END 2023-12-17 23:52 | disposition home or self-care (01) ==
LOC: ER 16:57
DX: K59.00 Constipation, unspecified (principal); J45.909 Unspecified asthma, uncomplicated
CPT/HCPCS: 80053; 81003; 81025; 84703; 84702; 85025; 84484; 36415; 74174; 71045; 71275; 99285; Q9967; Z7610